=== PATIENT | female | born 1970 | race Caucasian/White ===

== ENCOUNTER → 2018-08-11 14:58 | Outpatient (BNVA) | payer OTHER, SELFPAY | PROVIDERS: PCP Nurse Practitioner; Referring Provider Family Medicine; Visit Provider Physical Therapy Assistant | DX: Z12.11 Encounter for screening for malignant neoplasm of colon (principal); Z83.71 Family history of colonic polyps ==

== ENCOUNTER 2018-08-26 07:19 | Day surgery (SDC) | payer OTHER, SELFPAY ==
[2018-08-26 07:30] VITALS: BP 107/71; PULSE 82; RESP 19; TEMP 36.2; O2SAT 97
[2018-08-26] MEDS: Lactated Ringers 1,000 ML 80 ML IV ×2 (07:51→10:30)
--- NOTE | 2018-08-26 09:20 | BOWEL_PTH ---
PATIENT: Geo Bajwa LOC: [facility] U#:[id number] AGE/SX: 48/F ROOM: RE08/26/[address]: Sydnie Eisenberg : 1970 BED: DIS: 08/26/2018 SPEC #: [id number] RECD: 08/26/18 13:10 STATUS: JOSEFINA RE #: [id number] MARC: 08/26/18 09:[address]: Sydnie Eisenberg DEPT: Surgical Specimen RECD BY: Jackie James ENTERED: 08/26/18 13:11 SP TYPE: Bowel OTHR DR: Mary Rosales Tissues: 1 - BIOPSY BOWEL 2 - BIOPSY BOWEL 3 - BIOPSY BOWEL 4 - BIOPSY BOWEL 5 - BIOPSY BOWEL 6 - BIOPSY BOWEL 7 - BIOPSY BOWEL Procedures: GROSS AND MICRO LEVEL 4 Comments: [id number]
[2018-08-26 11:00] VITALS: BP 102/49; PULSE 63; RESP 17; TEMP 36.6; O2SAT 98
[2018-08-26 11:05] VITALS: BP 110/59; PULSE 59; RESP 17; TEMP 36.6; O2SAT 97
[2018-08-26 11:10] VITALS: BP 96/52; PULSE 60; RESP 10; TEMP 36.6; O2SAT 98
--- NOTE | 2018-08-26 11:23 | W.PM.DSUDISC ---
Discharge Plan Disposition Patient Disposition: HOME Condition: Good Discharge Details Reason For Visit: CE- mult lg polyps removed Attending Provider: Sydnie Eisenberg Primary Care Provider: Mary Rosales Home Meds and New Rx's Prescriptions: New metronidazole [Flagyl] 500 mg tablet 500 mg PO TID 7 Days Qty: 21 RF: 0 ciprofloxacin HCl 500 mg tablet 500 mg PO BID Qty: 14 RF: 0 Continued atorvastatin 20 mg tablet 20 mg PO DAILY RF: 0 cyclobenzaprine 5 mg tablet 5 mg PO QHS PRNRF: 0 escitalopram oxalate [Lexapro] 20 mg tablet 30 mg PO QHS RF: 0 lamotrigine [Lamictal] 25 mg tablet 50 mg PO QPM RF: 0 trazodone 50 mg tablet 50 mg PO PRN RF: 0 Discontinued polyethylene glycol 3350 17 gram/dose powder 238 g PO ONCE Qty: 238 RF: 0 bisacodyl [Dulcolax (bisacodyl)] 5 mg tablet,delayed release (DR/EC) 5 mg PO ONCE Qty: 4 RF: 0 Discharge Instructions Instructions: Low Fiber Diet (GEN), High Fiber Diet (GEN) Additional Instructions: Findings: x12 lg polyps NO: ASA/NSAID's for 2 wks Abx: cipro/flagyl for 1 wks time. This is to avoid Post Polypectomy infection. Do not expect to have a BM for 2-3 days. You will most likely past some blood w/ first few BM. If you are passing lg amount of blood (more than a period) or clots bigger than your hand- go to the ED. soft/low fiber diet for 72 hrs. than slowly transition to high fiber diet. F/u Zapata in two wks time Follow up: repeat scope in 1 yrs time b/c of the size and number of polyps Please call if you develop: fevers >101.5 Nausea or Vomiting Abdominal pain that is not transient DAY SURGERY UNIT POST COLONOSCOPY INSTRUCTIONS 1. Because there will be medication in your system for the next 24 hours, you may feel a little sleepy. Your coordination will be affected. Therefore: a. Do not drive or operate dangerous equipment for 24 hours. b. Do not drink alcohol beverages for 24 hours (not even beer). c. Plan to go home and rest for the day. 2. Generally there are no restrictions on your activity after a day or so has gone by, but you may feel a bit fatigued for a few days. 3 After you arrive home you may have a light meal and return to a normal diet as you can tolerate it without feeling sick to your stomach. 4. After surgery, you may feel pain or discomfort. This should be only transient, but if it persists please contact your doctor. 5. If there are any questions regarding the findings of your procedure, please feel free to contact your doctor. 6. If you are unable to contact your doctor with a problem, contact the hospital at [phone]. 7. Continue all your regular medications unless directed otherwise. I understand the above instructions and have no questions. Signature of Patient or Responsible Adult Escort Date/Time Name of Responsible Adult Escort Signature of Nurse Date/Time Stand Alone Forms: Anastacia Pretty (DARREN) Activity:: no heavy lifting or strenuous activity x 72 hrs Diet:: low fiber diet x 72 hrs Discharge Orders Discharge Orders: Discharge Order (Routine); Ordered 08/26/18 Ordered By: Sydnie Eisenberg DS: Diagnosis Discharge Diagnosis (1) Adenomatous polyps: Status: Acute
[2018-08-26 11:25] VITALS: BP 99/53; PULSE 57; RESP 15; TEMP 36.6; O2SAT 97
--- NOTE | 2018-08-26 11:34 | W.COLOREPORT ---
Date of service: 08/26/18 Time of Service: 11:34 Colonoscopy Report Date of procedure: 08/26/18 Pre-op diagnosis general: CRC screen/extensive 1 degree fam Hx of polyps. Post-op diagnosis procedure note: other (mult lg polyps) Procedure: CE w/ x12 Surgeon: Sydnie Eisenberg Anesthesia proc note operative: GETA Estimated blood loss (mL): 5 Pathology: other Complications: None Disposition: PACU Prep: Miralax Retraction Time: 1 hour Procedure Description: After informed consent was obtained the patient was taken to the procedure room and placed in a left decubitous position. Monitors were applied and a time out was done. The patients name, date of , procedure, allergies to medications and metal in their body was reviewed. The patient was then sedated. Once sedated and comfortable a rectal exam was done. External exam was normal. Internal exam revealed a normal sphincter tone and no palpable masses. The scope was then introduced and retrofelexed. No internal hemorrhoids were identified. The scope was then advanced to the cecum without difficulty. The TI and appendiceal orifice were identified. The prep was good. The scope was then slowly retracted over 60 minutes back into the rectum. There are no diverticula. 12 polyps were removed in total - & via a hot snare; x1 by cold biter; x4 via hot biter. The largest polyp was removed at 80cm. This is on a log stalk. It is at least >1cm. The rest were sessile. 7 of the polps are at least >5mm. the polyps were removed at: 20cm/descending x1. 30cm/descending x2. 50cm/transverse x3. 60cm/transverse x3. 80cm/ascending colonx1 (this was the largest polyp). cecal polyp x1. 70cm/ascending colon x1. The vasculature and mucosa are nl in appearance. Pt had mult large polyps removed. They were all adenomas by NBI. The scope was removed and the patient was woken up and taken back to Same day surgery in stable condition. The patient tolerated the procedure well and there were no immediate complications. Follow up: The patient should follow up in 1 years unless they develop changes in bowel habits or other new gastrointestinal complaints.
[2018-08-26 12:15] VITALS: BP 117/77; PULSE 60; RESP 16; TEMP 35.9; O2SAT 99
== END 2018-08-26 12:33 | disposition home or self-care (01) ==
PROVIDERS: PCP Nurse Practitioner; Visit Provider Surgery
PROC: 0DJD8ZZ Inspection of Lower Intestinal Tract, Via Natural or Artificial Opening Endoscopic (ICD-10-PCS; CPT 45378; principal; 2018-08-26 08:15)
DX: Z12.11 Encounter for screening for malignant neoplasm of colon (principal); D12.4 Benign neoplasm of descending colon; D12.3 Benign neoplasm of transverse colon; D12.2 Benign neoplasm of ascending colon; D12.0 Benign neoplasm of cecum; K63.5 Polyp of colon
CPT/HCPCS: 45385; 45384; 45380; 88305

== ENCOUNTER → 2018-09-12 14:46 | Outpatient (BNVA) | payer OTHER, SELFPAY | PROVIDERS: PCP Nurse Practitioner; Referring Provider Nurse Practitioner; Visit Provider Surgery | DX: D36.9 Benign neoplasm, unspecified site (principal); Z83.71 Family history of colonic polyps | CPT/HCPCS: 99211; 99213 ==

== ENCOUNTER 2018-12-21 16:39 | Outpatient (REF) | payer OTHER, SELFPAY ==
[2018-12-21 19:54] LABS: ALT 73 U/L (14-59); AST 32 U/L (15-37); Alkaline Phosphatase 71 U/L (46-116); Anion Gap 11.4 mmol/L (3-11); BUN 14 mg/dL (7-18); Bilirubin, Total 0.3 mg/dL (0.2-1.0); CO2 26.6 mmol/L (21.0-32.0); CREATININE 0.98 mg/dL (0.55-1.02); Calcium 9.5 mg/dL (8.5-10.1); Chloride 106 mmol/L (98-107); Cholesterol 208 mg/dL (50-200); Glucose 102 mg/dL (70-100); HDL Cholesterol 32 mg/dL (40-60); Potassium 4.4 mmol/L (3.5-5.1); Sodium 144 mmol/L (136-145); Total Protein 7.2 g/dL (6.4-8.2); Triglyceride 414 mg/dL (30-150)
[2018-12-21 20:06] LABS: LDL CHOLESTEROL 106 mg/dL (<100)
== END 2018-12-21 16:59 ==
LOC: NCHCN 16:39
PROVIDERS: PCP Nurse Practitioner; Visit Provider Nurse Practitioner
DX: E78.1 Pure hyperglyceridemia (principal)
CPT/HCPCS: 80053; 80061; 83721

== ENCOUNTER 2020-07-26 03:11 | Outpatient (CLI) | payer OTHER, SELFPAY ==
[2020-07-26 14:06] LABS: HCT 44.5 % (36.0-46.0); HGB 14.7 g/dL (11.2-15.7); MCH 30.1 pg (27.0-33.0); MPV 10.1 fL (8.0-11.0); Platelet Count 252 10^3/uL (130-400); RBC 4.89 10^6/uL (3.93-5.22); RDW-SD 40.2 fL; WBC 7.14 10^3/uL (4.4-10.8)
[2020-07-26 14:42] LABS: ALT 67 U/L (14-59); AST 31 U/L (15-37); CREATININE 0.9 mg/dL (0.55-1.02); Glucose 99 mg/dL (74-106)
[2020-07-26 15:00] LABS: Calculated LDL 102 mg/dL (<100); Cholesterol 183 mg/dL (<200); HDL Cholesterol 39 mg/dL (40-60); Triglyceride 214 mg/dL (<150)
[2020-07-26 15:48] LABS: Hemoglobin A1C 5.4 % (<5.7)
[2020-07-26 15:52] LABS: ALT 65 U/L (14-59); AST 31 U/L (15-37); Alkaline Phosphatase 82 U/L (46-116); Anion Gap 10.1 mmol/L (3-11); BUN 17 mg/dL (7-18); Bilirubin, Total 0.4 mg/dL (0.2-1.0); CO2 25.9 mmol/L (21.0-32.0); CREATININE 0.9 mg/dL (0.55-1.02); Calcium 9.1 mg/dL (8.5-10.1); Chloride 104 mmol/L (98-107); Glucose 100 mg/dL (74-106); Potassium 4.3 mmol/L (3.5-5.1); Sodium 140 mmol/L (136-145)
[2020-08-01 16:21] LABS: Testosterone, Free 0.82 ng/dL (0.06-0.95); Testosterone, Total 39 ng/dL (8-60)
== END 2020-07-26 03:12 | disposition home or self-care (01) ==
PROVIDERS: PCP Nurse Practitioner; Visit Provider Obstetrics & Gynecology
DX: E78.1 Pure hyperglyceridemia (principal); R73.9 Hyperglycemia, unspecified; F64.9 Gender identity disorder, unspecified
CPT/HCPCS: 36415; 80053; 80061; 82947; 84402; 84403; 85027; 82565; 83036; 84450; 84460

== ENCOUNTER 2020-08-22 19:12 | Outpatient (REF) | payer OTHER, SELFPAY ==
[2020-08-22 20:46] LABS: ALT 41 U/L (14-59); AST 17 U/L (15-37); Albumin 3.7 g/dL (3.4-5.0); Alkaline Phosphatase 73 U/L (46-116); Bilirubin, Direct 0.1 mg/dL (0.0-0.2); Bilirubin, Total 0.4 mg/dL (0.2-1.0); Total Protein 6.7 g/dL (6.4-8.2)
== END 2020-08-22 19:13 | disposition home or self-care (01) ==
LOC: NCHCN 19:12
PROVIDERS: PCP Nurse Practitioner; Visit Provider Nurse Practitioner
DX: R74.8 Abnormal levels of other serum enzymes (principal)
CPT/HCPCS: 80076

== ENCOUNTER 2020-09-14 17:51 | Emergency (ER) | payer OTHER, SELFPAY ==
[2020-09-14 18:00] VITALS: BP 117/83; PULSE 85; RESP 16; TEMP 36.9; O2SAT 96
--- NOTE | 2020-09-14 18:16 | ED.GENADUL_ITS ---
Discharge Plan Disposition Patient Disposition: HOME Condition: Good Discharge Details Clinical Impression: Laceration of left thumb Primary Care Provider: Mary Rosales ED Provider: Jackie Nelson Home Meds and New Rx's Prescriptions: No Action atorvastatin 20 mg tablet 20 mg PO DAILY RF: 0 cyclobenzaprine 5 mg tablet 5 mg PO QHS PRNRF: 0 escitalopram oxalate [Lexapro] 20 mg tablet 30 mg PO QHS RF: 0 lamotrigine [Lamictal] 25 mg tablet 50 mg PO QPM RF: 0 trazodone 50 mg tablet 50 mg PO PRN RF: 0 testosterone cypionate 200 mg/mL oil 50 mg IM Q7D RF: 0 Discharge Instructions Instructions: Laceration (ED) Additional Instructions: Dressing on for 2 to 3 days Keep dry for 48 hours Return with spreading redness, fever, worsening pain Bleeding, apply pressure and cool compresses We will not typically suture lacerations been longer than 6 to 12 hours, 12 hours to be the maximum time. Discharge Data Discharge Date/Time-TO BE ENTERED AT DEPARTURE: 09/14/20 18:27 Medical Decision Making Neurovascularly intact, bleeding controlled, given 22 hours post injury, recommendation to not suture secondary to risk of infection No evidence of fracture, neurovascularly intact Wound cleansed and dressing applied Return precautions discussed and patient was understanding Medical Records Medical records reviewed: Yes I reviewed the patient's medical records. HPI General Date/Time Provider Initiated Documentation: 09/14/20 18:16 . Limitations to Documentation: no limitations . Information obtained by: patient . HPI Narrative: This 50-year-old female presents with laceration to left thumb yesterday evening around 8 with a knife accidentally. Denies additional injuries. Presents today secondary to persistent bleeding reportedly. Tetanus up-to-date. Denies any additional injuries. Related Data Home Medications Medication Instructions Recorded Confirmed atorvastatin 20 mg tablet 20 mg PO DAILY 07/20/18 09/14/20 cyclobenzaprine 5 mg tablet 5 mg PO QHS PRN 07/20/18 09/14/20 escitalopram oxalate 20 mg tablet 30 mg PO QHS tab 08/11/18 09/14/20 lamotrigine 25 mg tablet 50 mg PO QPM tab 08/11/18 09/14/20 trazodone 50 mg tablet 50 mg PO PRN 08/11/18 09/14/20 testosterone cypionate 50 mg IM Q7D 09/14/20 09/14/20 Allergies Allergy/AdvReac Type Severity Reaction Status Date / Time clove AdvReac Nausea Verified 09/14/20 18:04 General Stated Complaint: Laceration ADDISON: 4 Review of Systems Narrative: Review of systems negative x3 aside from where indicated in HPI [facility] Medical History (Updated 09/14/20 @ 18:18 by RAFAEL Kelley) Adenomatous polyps tubular x 4, tubulovillous x 4, repeat 1 year, Dr Sydnie Eisenberg, [facility]. mg Anxiety Back pain Family history of colon cancer Family history of colonic polyps Hypertriglyceridemia Macromastia Major depression Physical deconditioning Poor dentition PER PT. PVCs (premature ventricular contractions) PT. STATES PCP (VAIBHAV) TOLD HER SHE HAD THIS CONDITION, MD DID NOT RUN EKG ACCORDING TO PT. Ulnar neuropathy of left upper extremity Social History Smoking/Tobacco Use Status: Former Tobacco Use Quit Date: 08/06/13 Smoking risk assessment performed?: Yes Alcohol Intake: current Alcohol Intake frequency: holidays/special occasions only Drug use: Never Substance use type: does not use Do you feel safe at home: Yes Do you feel safe in your relationship?: Yes Exam Extrem Hand/finger images: 1. Laceration noted, no active bleeding, sensation intact distally Course Vital Signs Vital signs: Vital Signs Temperature 36.9 C 09/14/20 18:00 Pulse 85 09/14/20 18:00 Respiratory Rate 16 09/14/20 18:00 Blood Pressure 117/83 09/14/20 18:00 Pulse Oximetry 96 09/14/20 18:00 Temperature 36.9 C 09/14/20 18:00 Temperature Source Oral 09/14/20 18:00 Pulse 85 09/14/20 18:00 Respiratory Rate 16 09/14/20 18:00 Respiratory Effort Non-Labored 09/14/20 18:03 Blood Pressure 117/83 09/14/20 18:00 Blood Pressure Position Sitting 09/14/20 18:00 Pulse Oximetry 96 09/14/20 18:00 Oxygen Delivery Method Room Air 09/14/20 18:00 Oxygen Flow Rate 0 09/14/20 18:00 Pain Level 2 09/14/20 18:09
== END 2020-09-14 18:27 | disposition home or self-care (01) ==
PROVIDERS: Emergency Provider Physician Assistant; PCP Nurse Practitioner
DX: S61.012A Laceration without foreign body of left thumb without damage to nail, initial encounter (principal); W26.0XXA Contact with knife, initial encounter
CPT/HCPCS: 99282

== ENCOUNTER 2020-10-24 03:03 | Outpatient (CLI) | payer OTHER, SELFPAY ==
[2020-10-24 08:56] LABS: HCT 47.6 % (36.0-46.0); HGB 15.4 g/dL (11.2-15.7); MCH 29.1 pg (27.0-33.0); MCHC 32.4 % (32.0-36.0); MPV 10.2 fL (8.0-11.0); Platelet Count 301 10^3/uL (130-400); RBC 5.29 10^6/uL (3.93-5.22); RDW 11.9 % (11.7-14.6); RDW-SD 38.9 fL; WBC 6.96 10^3/uL (4.4-10.8)
[2020-10-24 09:23] LABS: ALT 24 U/L (14-59); AST 13 U/L (15-37); CREATININE 0.9 mg/dL (0.55-1.02); Calculated LDL 74 mg/dL (<100); Cholesterol 139 mg/dL (<200); Glucose 89 mg/dL (74-106); HDL Cholesterol 32 mg/dL (40-60); Triglyceride 166 mg/dL (<150)
[2020-11-02 12:00] LABS: Testosterone, Free 8.08 ng/dL (0.06-0.92); Testosterone, Total 323 ng/dL (8-60)
== END 2020-10-24 03:04 | disposition home or self-care (01) ==
LOC: LBO 03:04
PROVIDERS: PCP Nurse Practitioner; Visit Provider Obstetrics & Gynecology
DX: F64.9 Gender identity disorder, unspecified (principal); R79.89 Other specified abnormal findings of blood chemistry
CPT/HCPCS: 36415; 80061; 82947; 84402; 84403; 85027; 82565; 84450; 84460

== ENCOUNTER 2021-02-12 02:14 | Outpatient (CLI) | payer MEDICARE, SELFPAY ==
[2021-02-12 18:15] LABS: ALT 30 U/L (14-59); AST 13 U/L (15-37); CREATININE 0.9 mg/dL (0.55-1.02)
[2021-02-17 15:33] LABS: Testosterone, Free 9.24 ng/dL (0.06-0.92); Testosterone, Total 298 ng/dL (8-60)
== END 2021-02-12 02:15 | disposition home or self-care (01) ==
LOC: LBO 02:14
PROVIDERS: PCP Nurse Practitioner; Visit Provider Obstetrics & Gynecology
DX: F64.9 Gender identity disorder, unspecified (principal)
CPT/HCPCS: 36415; 80061; 82947; 84402; 84403; 85027; 82565; 84450; 84460

== ENCOUNTER → 2021-03-27 14:23 | Outpatient (BNVA) | payer MEDICARE, SELFPAY | PROVIDERS: PCP Nurse Practitioner; Referring Provider Nurse Practitioner; Visit Provider Physical Therapy Assistant | DX: Z12.11 Encounter for screening for malignant neoplasm of colon (principal); Z86.010 Personal history of colon polyps ==

== ENCOUNTER 2021-04-11 01:15 | Outpatient (CLI) | payer MEDICARE, SELFPAY ==
[2021-04-11 11:41] LABS: Source Nasal/Nares
[2021-04-11 14:08] LABS: COVID-19 PCR Negative (Negative)
== END 2021-04-11 01:16 | disposition home or self-care (01) ==
LOC: LBO 01:15
PROVIDERS: PCP Nurse Practitioner; Visit Provider Surgery
DX: Z20.822 Contact with and (suspected) exposure to COVID-19 (principal); Z01.818 Encounter for other preprocedural examination
CPT/HCPCS: 87635

== ENCOUNTER 2021-04-14 06:39 | Day surgery (SDC) | payer MEDICARE, SELFPAY ==
--- NOTE | 2021-04-14 06:39 | W.COLOREPORT ---
Colonoscopy Report Date of procedure: 04/14/21 Pre-op diagnosis general: Screening colonoscopy, Hx of colon polyps Post-op diagnosis procedure note: other (7 polyps) Procedure: Colonoscopy with polypectomy Surgeon: Ayana Reyes Anesthesia Type: General:No Airway ([place], [place]) Estimated blood loss (mL): 3 Pathology: other (ascending polyp, transverse polyp, descending polyp x4 and sigmoid polyp) Complications: None Disposition: same day Indications: The patient is here for Colonoscopy pre-op. His last screening was in 2019, which was remarkable for tubular adenoma's x 4, tubulovillious adenomas x 4 and a hyperplastic polyp. He has no family history of colon cancer. He has not had any bowel habit changes. -Discussed colonoscopy bowel prep as well as the procedure. Discussed possible complications of the procedure to include bleeding, pain, perforation, missed small lesion/polyp, sore throat, aspiration and adverse reaction to the medications. Questions were answered to patient?s satisfaction. No guarantees were implied or given. Prep: Miralax/Dulcolax Procedure Start Time: 08:24 Procedure End Time: 09:11 Retraction Time: 35 minutes Findings: 7 sessile polyps ranging from 0.5 to .8 cm Procedure Description: After informed consent was obtained the patient was taken to the procedure room and placed in a left decubitous position. Monitors were applied and a time out was done. The patients name, date of , procedure, allergies to medications and metal in their body was reviewed. The patient was then sedated. Once sedated and comfortable a rectal exam was done. External exam was normal. Internal exam revealed a normal sphincter tone and no palpable masses. The scope was then introduced and retro-flexed. No internal hemorrhoids, polyps or masses were identified on retro-flexion. The scope was then advanced to the cecum without difficulty. The ileocecal valve and appendiceal orifice were identified. The prep was good. The scope was then slowly retracted over 35 minutes back into the rectum. Polyps were removed with hot snare in the ascending colon, transverse colon, desccending colon x2 and with cold forceps in the descending colon x2 and sigmoid colon. There was no diverticulosis noted. The scope was removed and the patient was woken up and taken back to Same day surgery in stable condition. The patient tolerated the procedure well and there were no immediate complications. Follow up: The patient should follow up in 3 years unless they develop changes in bowel habits or other new gastrointestinal complaints.
--- NOTE | 2021-04-14 06:40 | PDOC.DSDIS_ITS ---
Discharge Plan Disposition Patient Disposition: HOME Condition: Good Discharge Details Reason For Visit: Colonoscopy Attending Provider: Ayana Reyes Primary Care Provider: Libertad Canchola Home Meds and New Rx's Prescriptions: Continued atorvastatin 20 mg tablet 20 mg PO DAILY RF: 0 cyclobenzaprine 5 mg tablet 5 mg PO QHS PRNRF: 0 B-complex with vitamin C Capsule 1 cap PO DAILY RF: 0 cholecalciferol (vitamin D3) 25 mcg (1,000 unit) capsule 25 mcg PO DAILY RF: 0 coenzyme Q10 [CoQ-10] 30 mg capsule 30 mg PO DAILY RF: 0 Fish Oil 100-160-1,000 mg capsule 1 cap PO DAILY RF: 0 hypmrluw-wwe-qhfov-[id number]-brlf [Ydkrdp-Ayrtd-VEY (with antiox)] 500-500-66.7 mg tablet 1 tab PO DAILY RF: 0 escitalopram oxalate [Lexapro] 20 mg tablet 30 mg PO QHS RF: 0 lamotrigine [Lamictal] 25 mg tablet 50 mg PO QPM RF: 0 trazodone 50 mg tablet 50 mg PO PRN RF: 0 testosterone cypionate 200 mg/mL oil 50 mg IM Q7D RF: 0 Discontinued polyethylene glycol 3350 17 gram/dose powder 238 g PO ONCE Qty: 238 RF: 0 bisacodyl [Dulcolax (bisacodyl)] 5 mg tablet,delayed release (DR/EC) 5 mg PO ONCE Qty: 4 RF: 0 Discharge Instructions Instructions: Colorectal Polyps (DC) Additional Instructions: Findings: 7 polyps Follow up: Most likely 3 years Please call if you develop: fevers >101.5 Nausea or Vomiting Abdominal pain that is not transient Rectal bleeding that is more then a tbsp A hard abdomen and inability to pass gas DAY SURGERY UNIT POST ENDOSCOPY INSTRUCTIONS Instructions for everyone who is given Anesthesia: For your safety, please do the following for the next 24 Hours: a. Do not drive or operate dangerous equipment b. Do not drink alcohol beverages or use any recreational drugs for the first 24 hours or while taking pain medications. The medications in your body may have a reaction that can be dangerous. c. Do not make any important decisions or sign any important papers 1. Generally there are no restrictions on your activity after a day or so has gone by, but you may feel a bit fatigued for a few days. 2. After you arrive home you may have a light meal and return to a normal diet as you can tolerate it without feeling sick to your stomach. 3. After surgery, you may feel pain or discomfort. This should be only transient, but if it persists please contact your doctor. 4. If there are any questions regarding the findings of your procedure, please f eel free to contact your doctor. 6. If you are unable to contact your doctor with a problem, contact the hospital at [phone]. 7. Continue all your regular medications unless directed otherwise. I understand the above instructions and have no questions. Signature of Patient or Responsible Adult Escort Date/Time Name of Responsible Adult Escort Signature of Nurse Date/Time Activity:: Activity as Tolerated Diet:: As Tolerated Discharge Orders Discharge Orders: Discharge Order (Routine); Ordered 04/14/21 Ordered By: Ayana Reyes
[2021-04-14 07:18] VITALS: BP 113/85; PULSE 82; RESP 16; TEMP 36.2; O2SAT 97
[2021-04-14] MEDS: Lactated Ringers 1,000 ML 80 ML IV (07:35)
--- NOTE | 2021-04-14 07:53 | W.ANESPRE ---
General Info Date of Service Date Performed: 04/14/21 Height: 5 ft 4 in Weight: 93.3 kg Body Mass Index (BMI): 35.3 Surgical Procedure: Operation Date: 04/14/21 08:20 Proposed Procedures Side Surgeon p Colonoscopy Ayana Reyes MD Meds Allergies and Home Medications Allergies Allergy/AdvReac Type Severity Reaction Status Date / Time clove AdvReac Nausea Verified 04/14/21 07:36 Home Medication Medication Instructions Recorded atorvastatin 20 mg tablet 20 mg PO DAILY 07/20/18 cyclobenzaprine 5 mg tablet 5 mg PO QHS PRN 07/20/18 escitalopram oxalate 20 mg tablet 30 mg PO QHS tab 08/11/18 lamotrigine 25 mg tablet 50 mg PO QPM tab 08/11/18 trazodone 50 mg tablet 50 mg PO PRN 08/11/18 testosterone cypionate 50 mg IM Q7D 09/14/20 B-complex with vitamin C 1 cap PO DAILY 03/27/21 bisacodyl 5 mg tablet,delayed 5 mg PO ONCE #4 tab 03/27/21 release cholecalciferol (vitamin D3) 25 25 mcg PO DAILY 03/27/21 mcg (1,000 unit) capsule coenzyme Q10 30 mg capsule 30 mg PO DAILY 03/27/21 kxooshugghs-yia-xldlsfmcu-hrb 1 tab PO DAILY 03/27/21 149-hyalur 500 mg-500 mg-66.7 mg tablet omega 9-oos-ags-fish oil 100 1 cap PO DAILY 03/27/21 mg-160 mg-1,000 mg capsule polyethylene glycol 3350 17 238 g PO ONCE #238 g 03/27/21 gram/dose oral powder Current Visit Medications: Current Medications Generic Name Dose Route Start Last Admin Trade Name Freq PRN Reason Stop Dose Admin Hyoscyamine Sulfate 0.125 mg 04/14/21 06:41 Hyoscyamine 0.125 Mg Sl/Oral/Chew SL DIRECTED PRN Ringer's Solution 1,000 mls @ 80 mls/hr 04/14/21 06:00 04/14/21 07:35 IV 05/11/21 23:59 80 mls/hr INFUSION GABRIELA Administration IV Miscellaneous Supplies 1 each 04/14/21 06:00 Iv Access IV 05/11/21 23:59 DIRECTED GABRIELA Ondansetron HCl 4 mg 04/14/21 06:41 Ondansetron 4 Mg/2 Ml Vial IVP Q4H PRN PRN Nausea / Vomiting Sodium Chloride 0 ml 04/14/21 06:00 Normal Saline Flush 10 Ml Syr IV 05/11/21 23:59 PRN PRN Sodium Chloride 0 ml 04/14/21 06:00 Normal Saline 10 Ml Vial IJ 05/11/21 23:59 DIRECTED PRN Sterile Water 0 ml 04/14/21 06:00 Water,Injection,Sterile 10 Ml Vial IJ 05/11/21 23:59 DIRECTED PRN PFSH Active Problems Active Problems: Problem Status Onset Code Family history of colonic polyps Z83.71 Adenomatous polyps D36.9 Tubular adenoma D36.9 Tubulovillous adenoma D36.9 Colon polyp, hyperplastic K63.5 Elevated liver enzymes R74.8 Gender identity disorder F64.9 Screening for colon cancer Z12.11 Medical History Medical History Anxiety Back pain Family history of colon cancer Family history of colonic polyps Hypertriglyceridemia Laceration of left thumb Macromastia Major depression Physical deconditioning Poor dentition PER PT. PVCs (premature ventricular contractions) PT. STATES PCP (VAIBHAV) TOLD HER SHE HAD THIS CONDITION, MD DID NOT RUN EKG ACCORDING TO PT. Ulnar neuropathy of left upper extremity Medical History Comments:: Pt. reports broken teeth, upper. Pt. reports no metal in body Surgical History Surgical History Hx laparoscopic cholecystectomy Hx of colonoscopy with polypectomy Tobacco Smoking/Tobacco Use Status: Former Tobacco Use Alcohol Alcohol Intake: current Alcohol intake frequency: a few times a month Alcohol type: beer and wine Substance Use Substance use: Never Substance use type: does not use Vital Signs and Lab Results Vital Signs Most Recent Vital Signs in EMR: Most Recent Vital Signs Temp Pulse Resp BP Pulse Ox 36.2 C L 82 16 113/85 97 04/14/21 07:18 04/14/21 07:18 04/14/21 07:18 04/14/21 07:18 04/14/21 07:18 Point of Care Results Point of Care Results: POC- Test(urine) Negative 04/14/21 07:45 Lab Results Blood Type / Crossmatch: No Data to Display Complete Blood Count: No Data to Display Complete Metabolic Panel: No Data to Display Liver Function Panel: No Data to Display Coagulation Panel: No Data to Display Cardiac Panel: No Data to Display Arterial Blood Gas: No Data to Display Venous Blood Gas: No Data to Display Pancreas Panel: No Data to Display Thyroid Panel: No Data to Display Infectious Disease: Coronavirus (COVID-19)(PCR) Negative (Negative) 04/11/21 11:06 04/11/21 Coronavirus 2019 Source Nasal/Nares 04/11/21 11:06 04/11/21 Blood Cultures: No Data to Display Toxicology Panel: No Data to Display Panel: No Data to Display Anesthesia Assessment and Plan Anesthesia History Personal History: No History of Anesthesia Complications Family History: No Family History of Anesthesia Complications Exercise Tolerance Exercise Tolerance: Metabolic Equivalents>4 Pertinent Negatives Pertinent Negatives: No Major Cardiovascular Symptoms or Complaints and No Major Pulmonary Symptoms or Complaints Cardiac & Pulmonary Exam Cardiac Exam: Normal S1/S2 Heart Sounds Pulmonary Exam: Clear Bilateral Breath Sounds Implantable Cardiac Device Does patient have a Pacemaker or an ICD?: No Airway Exam Known Difficult Airway: No Mallampati Class: 2 Mouth Opening: Normal (> 3cm) Thyromental Distance: Greater than 3 cm Neck Range of Motion: Full ROM Neck Circumference: Thick Teeth Condition: Generalized Poor Dentition ASA Classification ASA Score: ASA 2 Emergency Case?: No NPO Status NPO Status: NPO Clears >2 hours, Solids >8 hours Status Status: Not Per Patient Anesthesia Plan Resuscitation Status: Full Code Anesthesia Technique: General Anesthesia Airway Planned: Natural Airway Monitors Used: Standard Monitors
[2021-04-14 07:56] VITALS: BMI 35.3
--- NOTE | 2021-04-14 08:35 | BOWEL_PTH ---
PATIENT: Geo Bajwa LOC: [facility] U#:[id number] AGE/SX: 50/F ROOM: RE04/14/[address]: Ayana Reyes MD : 1970 BED: DIS: 04/14/2021 SPEC #: [id number] RECD: 04/14/21 12:41 STATUS: JOSEFINA RE #: [id number] MARC: 04/14/21 08:[address]: Ayana Reyes DEPT: Surgical Specimen RECD BY: Jackie James ENTERED: 04/14/21 12:44 SP TYPE: Bowel OTHR DR: Libertad Canchola Tissues: 1 - BIOPSY BOWEL 2 - BIOPSY BOWEL 3 - BIOPSY BOWEL 4 - BIOPSY BOWEL 5 - BIOPSY BOWEL 6 - BIOPSY BOWEL Procedures: GROSS AND MICRO LEVEL 4 Comments: [id number]
[2021-04-14 09:27] VITALS: BP 99/58; PULSE 73; RESP 16; TEMP 35.8; O2SAT 96
--- NOTE | 2021-04-14 09:28 | W.ANESPOSTOP ---
Postoperative Evaluation Date, Time and Location Date Performed: 04/14/21 Time Performed: 09:27 Patient Location: Day Surgery Unit Vital Signs Most Recent Imported Vital Signs: Most Recent Vital Signs Temp Pulse Resp BP Pulse Ox 36.2 C L 82 16 113/85 97 04/14/21 07:18 04/14/21 07:18 04/14/21 07:18 04/14/21 07:18 04/14/21 07:18 Most Recent Manually Entered Vital Signs: Adult Blood Pressure: 99/58 Heart Rate: 73 Respirations: 16 Oxygen Saturation (%): 96 Temperature (C): 35.8 C Pain Score (0-10 Scale): 0 Pain Score Most Recent Pain Score: Most Recent Pain Score Pain Level 0 04/14/21 07:18 Assessment Mental Status: Awake (Alert & Oriented to Patient Baseline) Airway and Respiratory Function: Patent airway with normal (patient baseline) respiratory exam Cardiovascular Function: Hemodynamically Stable Hydration Status: Adequately Hydrated Nausea & Vomiting: No Nausea or Vomiting Pain: Pt. Denies Any Pain Peripheral Nerve Block: Patient did not receive a nerve block
[2021-04-14 09:45] VITALS: BP 99/58; PULSE 73; RESP 16; TEMPC 35.8; O2SAT 96
[2021-04-14 09:55] VITALS: BP 111/58; PULSE 73; RESP 16; TEMP 36.5; O2SAT 97
[2021-04-14 10:10] VITALS: BP 115/78
== END 2021-04-14 10:30 | disposition home or self-care (01) ==
PROVIDERS: PCP Family Medicine; Visit Provider Surgery
PROC: 0DJD8ZZ Inspection of Lower Intestinal Tract, Via Natural or Artificial Opening Endoscopic (ICD-10-PCS; CPT 45378; principal; 2021-04-14 08:15)
DX: Z12.11 Encounter for screening for malignant neoplasm of colon (principal); D12.2 Benign neoplasm of ascending colon; D12.3 Benign neoplasm of transverse colon; D12.4 Benign neoplasm of descending colon; Z86.010 Personal history of colon polyps
CPT/HCPCS: 45380; 45385; 81025; 88305; J2001; J2704

== ENCOUNTER 2021-04-30 01:47 | Outpatient (CLI) | payer MEDICARE, SELFPAY ==
[2021-04-30 18:47] LABS: ALT 34 U/L (14-59); AST 16 U/L (15-37); CREATININE 0.9 mg/dL (0.55-1.02); Glucose 86 mg/dL (74-106)
[2021-05-02 10:55] LABS: HIV-1/2 Ag & Ab Screen Negative (Negative)
[2021-05-02 11:03] LABS: Hepatitis C Ab w Rflx HCV PCR Negative (Negative)
[2021-05-02 15:21] LABS: Chlamydia Result Negative (Negative); GC Result Negative (Negative)
[2021-05-02 19:57] LABS: Syphilis IgG w/Reflex Nonreactive (Nonreactive)
[2021-05-07 11:41] LABS: Source Urine
[2021-05-07 11:42] LABS: T.vaginalis, Misc, RNA Negative (Negative)
[2021-05-09 16:50] LABS: Testosterone, Free 23.6 ng/dL (0.06-0.92); Testosterone, Total 873 ng/dL (8-60)
== END 2021-04-30 01:48 | disposition home or self-care (01) ==
LOC: LBO 01:47
PROVIDERS: PCP Family Medicine; Visit Provider Obstetrics & Gynecology
DX: F64.9 Gender identity disorder, unspecified (principal); Z13.0 Encounter for screening for diseases of the blood and blood-forming organs and certain disorders involving the immune mechanism; Z11.3 Encounter for screening for infections with a predominantly sexual mode of transmission; Z11.4 Encounter for screening for human immunodeficiency virus [HIV]; Z11.8 Encounter for screening for other infectious and parasitic diseases; Z72.51 High risk heterosexual behavior
CPT/HCPCS: 36415; 80061; 82947; 84402; 84403; 85027; 86803; 87389; 87491; 87591; 87661; 82565; 84450; 84460; 86780

== ENCOUNTER 2021-10-30 03:25 | Outpatient (CLI) | payer MEDICARE, SELFPAY ==
[2021-10-30 15:15] LABS: Abs Immature Grans 0.02 10^3/uL (0.0-0.06); Absolute Basophil Count 0.03 10^3/uL (0.0-0.2); Absolute Eosinophil Count 0.28 10^3/uL (0.0-0.7); Absolute Lymphocyte Count 2.18 10^3/uL (1.2-3.4); Absolute Monocyte Count 0.63 10^3/uL (0.1-0.8); Basophils % 0.4; Eosinophils % 3.8; HCT 53.7 % (36.0-46.0); Immature Grans % 0.3; Lymphocytes % 29.7; MCH 29.5 pg (27.0-33.0); MCHC 33.5 % (32.0-36.0); MCV 88 fL (80-95); MPV 9.9 fL (8.0-11.0); Monocytes % 8.6; Neutrophils % 57.2; Platelet Count 237 10^3/uL (130-400); RBC 6.11 10^6/uL (3.93-5.22); RDW 12.8 % (11.7-14.6); WBC 7.34 10^3/uL (4.4-10.8)
[2021-10-30 16:10] LABS: ALT 33 U/L (14-59); AST 17 U/L (15-37); Albumin 3.6 g/dL (3.4-5.0); Alkaline Phosphatase 55 U/L (46-116); Anion Gap 8.4 mmol/L (3-11); BUN 10 mg/dL (7-18); Bilirubin, Total 0.7 mg/dL (0.2-1.0); CO2 29.6 mmol/L (21.0-32.0); Calcium 8.7 mg/dL (8.5-10.1); Calculated LDL 72 mg/dL (<100); Chloride 105 mmol/L (98-107); Cholesterol 149 mg/dL (<200); Estimated GFR 58.45 (mL/min/1.73m2); Glucose 98 mg/dL (74-106); HDL Cholesterol 29 mg/dL (40-60); Potassium 4.4 mmol/L (3.5-5.1); Sodium 143 mmol/L (136-145); TSH 0.96 uIU/mL (0.36-3.74); Total Protein 7.3 g/dL (6.4-8.2); Triglyceride 241 mg/dL (<150)
[2021-10-30 16:35] LABS: Diff Comment RBC Morph Reviewed; RBC Morphology Normal
[2021-11-14 14:13] LABS: Testosterone, Free 52.1 ng/dL (<0.13-0.92); Testosterone, Total 1040 ng/dL (8-60)
== END 2021-10-30 03:26 | disposition home or self-care (01) ==
LOC: LBO 03:25
PROVIDERS: PCP Family Medicine; Visit Provider Obstetrics & Gynecology
DX: R74.8 Abnormal levels of other serum enzymes (principal); F32.9 Major depressive disorder, single episode, unspecified; E78.1 Pure hyperglyceridemia; F41.9 Anxiety disorder, unspecified
CPT/HCPCS: 36415; 80053; 80061; 84402; 84403; 84443; 85025

== ENCOUNTER 2022-06-04 02:27 | Outpatient (CLI) | payer MEDICARE, SELFPAY ==
[2022-06-10 16:35] LABS: Testosterone, Free 20.5 ng/dL (<0.13-0.92); Testosterone, Total 631 ng/dL (8-60)
== END 2022-06-04 02:28 | disposition home or self-care (01) ==
PROVIDERS: PCP Family Medicine; Visit Provider Obstetrics & Gynecology
DX: F64.8 Other gender identity disorders (principal)
CPT/HCPCS: 36415; 84402; 84403; 85027

== ENCOUNTER 2022-09-22 02:50 | Outpatient (CLI) | payer MEDICARE, SELFPAY ==
[2022-09-22 12:47] LABS: ALT 36 U/L (14-59); AST 25 U/L (15-37); CREATININE 1.1 mg/dL (0.55-1.02); Estimated GFR 60.46 (mL/min/1.73m2)
[2022-09-22 12:58] LABS: HCT 53.3 % (36.0-46.0); HGB 18.2 g/dL (11.2-15.7); MCH 30.2 pg (27.0-33.0); MCHC 34.1 % (32.0-36.0); MCV 89 fL (80-95); MPV 9.8 fL (8.0-11.0); Platelet Count 218 10^3/uL (130-400); RBC 6.02 10^6/uL (3.93-5.22); RDW 12.3 % (11.7-14.6); RDW-SD 40.4 fL; WBC 7.04 10^3/uL (4.4-10.8)
[2022-09-22 13:10] LABS: Albumin 3.8 g/dL (3.4-5.0); Alkaline Phosphatase 67 U/L (46-116); Anion Gap 5.7 mmol/L (3-11); BUN 12 mg/dL (7-18); Bilirubin, Total 0.7 mg/dL (0.2-1.0); CO2 31.3 mmol/L (21.0-32.0); CREATININE 1.1 mg/dL (0.55-1.02); Calcium 8.7 mg/dL (8.5-10.1); Calculated LDL 132 mg/dL (<100); Chloride 102 mmol/L (98-107); Cholesterol 234 mg/dL (<200); Estimated GFR 60.46 (mL/min/1.73m2); Glucose 98 mg/dL (74-106); HDL Cholesterol 32 mg/dL (40-60); Potassium 4.2 mmol/L (3.5-5.1); Sodium 139 mmol/L (136-145); Total Protein 7.3 g/dL (6.4-8.2); Triglyceride 350 mg/dL (<150)
[2022-09-22 13:13] LABS: ALT 36 U/L (14-59); AST 25 U/L (15-37)
== END 2022-09-22 02:51 | disposition home or self-care (01) ==
PROVIDERS: Nurse Practitioner Family; PCP Family Medicine; Visit Provider Obstetrics & Gynecology
DX: E78.1 Pure hyperglyceridemia (principal); F41.8 Other specified anxiety disorders; F32.89 Other specified depressive episodes; D75.1 Secondary polycythemia; R74.8 Abnormal levels of other serum enzymes; F64.8 Other gender identity disorders; R73.9 Hyperglycemia, unspecified
CPT/HCPCS: 36415; 80053; 80061; 85027; 82565; 83036; 84450; 84460

== ENCOUNTER 2022-11-02 02:44 | Outpatient (CLI) | payer MEDICARE, SELFPAY ==
[2022-11-02 16:44] LABS: HCT 53.5 % (36.0-46.0); HGB 18.6 g/dL (11.2-15.7); MCH 30.2 pg (27.0-33.0); MCHC 34.8 % (32.0-36.0); MCV 87 fL (80-95); MPV 9.7 fL (8.0-11.0); Platelet Count 257 10^3/uL (130-400); RDW 12.4 % (11.7-14.6); WBC 8.44 10^3/uL (4.4-10.8)
[2022-11-02 16:47] LABS: RBC 6.15 10^6/uL (3.93-5.22)
[2022-11-12 11:39] LABS: Testosterone, Free 31.1 ng/dL (<0.13-0.92); Testosterone, Total 713 ng/dL (8-60)
== END 2022-11-02 02:45 | disposition home or self-care (01) ==
PROVIDERS: PCP Family Medicine; Visit Provider Obstetrics & Gynecology
DX: D75.1 Secondary polycythemia (principal); F64.8 Other gender identity disorders; E28.1 Androgen excess
CPT/HCPCS: 36415; 84402; 84403; 85027

== ENCOUNTER 2023-03-18 03:32 | Outpatient (CLI) | payer MEDICARE, SELFPAY ==
--- OUTSIDE RECORDS SUMMARY | 2023-03-18 03:47 | XMS_ITS | Patient Health Record ---
Author Name Unknown Organization [facility] Address [address], [address] [place] [address] Care Team Providers Care Certified Ophthalmic Technician Name Role Phone [facility] [place] Unavailable Sung MCQUEEN, Domonique Unavailable [phone] ALLERGIES Allergen (clinical drug ingredient) Drug/Non Drug Allergy documented on EMR Reaction Allergy Type Onset Date Status Clove Oil headache, nausea , inability to focus Drug Allergy Active Adhesive itching/swelling Allergy Act darwin Dust Mites nasal congestion/sneezi ng Allergy Active Mold nasal congestion/sneezi ng Allergy Active Pollen Pollen nasal congestion/sneezi ng Allergy Active RESULTS Component Value Reference Range Notes TVUS Reviewed date:11/20/2022 01:24:50 PM Interpretation: Performing Lab: Notes/Report: REASON FOR REFERRAL No Information MEDICATIONS Medication SIG (Take, Route, Frequency, Duration) Notes Start Date End Date Status lamoTRIgine 50 MG 1 tablet Orally Once a day Active Atorvastatin Calcium 20 MG 1 tablet Orally Once a day Active Fish Oil Active CoQ-10 Active Glucosamine-MSM Acti ve Vitamin D3 50 MCG (1999 [place]) 1 tablet Orally Once a day for 30 day(s) Active traZODone HCl 50-100mg PRN Act darwin Vitamin B Complex Ac tive Testosterone Cypionate 200 MG/ML 0.2 mL SQ once per week Active Betamethasone Dipropionate 0.05 % 1 thin application to affected areas of vulva Externally BID x 2 wks, then QD x 2 wks, then 2x/wk x 2 wks, then sparingly prn for 90 days 11/16/2022 Active Escitalopram Oxalate 30 mg Active SOCIAL HISTORY Tobacco Use: Social History Observation Description Date Details (start date - stop date) Former Smoker NA - NA Sex Assigned At : Social History Observation Description Sex Assigned At Unknown Alcohol Question Answer Notes Did you have a drink contain ing alcohol in the past year? Yes How often did you have a dri nk containing alcohol in the past year? Two to four times a month (2 points) Smoking Question Answer Notes Are you a: former smoker PROBLEMS Problem Type ICD Code Onset Dates Problem Status W/U Status Risk SNOMED Code Notes Problem Intramural leiomyoma of uterus (D25.1) Active confirmed Intramural leiomyoma of uterus (75238255) Problem Subserosal leiomyoma of uterus (D25.2) Active confirmed Subserous leiomyoma of uterus (17512276) Problem Other specified urinary incontinence (N39.498) Active confirmed Urinary incontinence (403262532) Problem Vulvar cyst (N90.7) Active confirmed Cyst of vulva (67482949) Problem Other fecal abnormalities (R19.5) Active confirmed Abnormal feces (389330542) Problem Abnormal uterine and vaginal bleeding, unspecified (N93.9) Active confirmed Abnormal uterine bleeding (94844533740503 ) Problem Gender identity disorder, unspecified (F64.9) Active confirmed Gender identity disorder (37663530) VITAL SIGNS Blood pressure diastolic 72 03/11/2023 Height 64 in 03/11/2023 Blood pressure systolic 110 03/11/2023 Weight 188 lbs 03/11/2023 BMI 32.27 kg/m2 03/11/2023 Encounters Encounter Location Date Provider Diagnosis [facility] [address] [place] [address], [address] [place] [address] 03/19/2022 [facility] [address] [place] [address], [address] [place] [address] 05/21/2022 [facility] [address] [place] [address], [address] [place] [address] 05/28/2022 [facility] [address] [place] [address], [address] [place] [address] 06/01/2022 [facility] [address] [place] [address], [address] [place] [address] 06/01/2022 [facility] [address] [place] [address], [address] [place] [address] 06/05/2022 [facility] [address], [address] [place] [address] 06/16/2022 [facility] [address], [address] [place] [address] 06/16/2022 [facility] [address], [address] [place] [address] 06/16/2022 [facility] [address], [address] [place] [place] [phone] 09/17/2022 [facility] Sung Gender identity disorder, unspecified F64.9 ; Other fecal abnormalities R19.5 and Other specified urinary incontinence N39.498 [facility] [address] [facility], [address] 09/17/2022 [facility] [address] [facility], [address] [place] [address] 09/21/2022 [facility] [address], [address] [place] [address] 09/22/2022 [facility] [address] [facility], [address] [place] [address] 09/29/2022 [facility] [address], [address] [place] [address] 10/23/2022 [facility] [address], [address] [place] [address] 10/23/2022 [facility] [address], [address] [place] [place] [phone] 10/25/2022 [facility] [address] [facility], [address] [place] [address] 11/07/2022 [facility] [address], [address] [place] [place] [phone] 11/11/2022 [facility] [address] [facility], [address] [place] [address] 11/12/2022 Domonique Almaraz Abnormal uterine and vaginal bleeding, unspecified N93.9 ; Intramural leiomyoma of uterus D25.1 ; Subserosal leiomyoma of uterus D25.2 ; Vulvar cyst N90.7 ; Gender identity disorder, unspecified F64.9 ; Other fecal abnormalities R19.5 and Other specified urinary incontinence N39.498 [facility] [facility], [address] [place] [address] 12/14/2022 [facility] [address] [facility], [address] [place] [address] 01/03/2023 [facility] [address] [facility], [address] [place] [address] 01/27/2023 [facility] [facility], [address] [place] [address] 02/09/2023 [facility], [address] [place] [address] 02/11/2023 [facility], [address] [place] [address] 02/19/2023 [facility], [address] [place] [address] 02/22/2023 [facility] [address] [facility], [address] [place] [address] 02/22/2023 [facility], [address] [place] [address] 02/22/2023 [facility], [address] [place] [address] 03/05/2023 [facility], [address] [place] [address] 03/11/2023 [facility], [address] [place] [address] 03/18/2023 Domonique Almaraz ASSESSMENTS Encounter Date Diagnosis Assessment Notes Treatment Notes Treatment Clinical Notes 11/12/2022 Intramural leiomyoma of uterus (ICD-10 - D25.1) 09/17/2022 Other fecal abnormalities (ICD-10 - R19.5) Discussed symptoms, ddx and options. Re diarrhea and urine loss with orgasm: continue to increase fiber in diet; consider trial of metamucil. Refer to pelvic PT - he'll want to see someone more local to him and will reseach - will lmk if referral needed. 09/17/2022 Gender identity disorder, unspecified (ICD-10 - F64.9) Discussed symptoms and findings. Continue current T dose - will call if/when refills needed [ ] send order for additional labs needed with each separate dx code to [facility] RTC 1 yr annual T f/u Considering TLH/BSO in the spring - will let us know if/when ready to schedule surgery I spent a cumulative total of 30 minutes in and around this visit, including within 24 hrs after the visit, caring for this patient, i.e. 5 mins reviewing previous medical history, 15 mins evaluating the patient, and 10 mins coordinating care and completing the electronic medical record. 11/12/2022 Abnormal uterine and vaginal bleeding, unspecified (ICD-10 - N93.9) Discussed dx of fibroid uterus and options: do nothing vs watchful waiting vs trial medications vs UAE vs myomectomy vs minimally invasive hysterectomy. Clear and strong preference for hysterectomy. [ ] Plan Nyla TLH/BS < [address] [facility] - wants flakita of note, best to call pt in the afternoon due to not awake in the mornings Declines EMB after discussion. Wants to keep ovaries for likely benefits to cognitive, bone and cardiovascular health. (Notes FH CVD.) Beyond the TVUS, I spent a cumulative total of 40 minutes in and around this visit, including within 24 hrs after the visit, caring for this patient, i.e. 5 mins reviewing previous medical history, 25 mins evaluating the patient, and 10 mins coordinating care and completing the electronic medical record. 11/12/2022 Subserosal leiomyoma of uterus (ICD-10 - D25.2) 09/17/2022 Other specified urinary incontinence (ICD-10 - N39.498) 11/12/2022 Vulvar cyst (ICD-10 - N90.7) Discussed differential diagnosis, options, risks, benefits and alternatives of each. [ ] 6 wks BMZ burst/taper - Nancie Pinzon rx Call/RTC if ineffective - for vulvar bx 11/12/2022 Gender identity disorder, unspecified (ICD-10 - F64.9) 11/12/2022 Other fecal abnormalities (ICD-10 - R19.5) 11/12/2022 Other specified urinary incontinence (ICD-10 - N39.498) PLAN OF TREATMENT Next Appt Details Provider Name:Domonique Almaraz, 04/14/2023 01:30:00 PM, [address] [place], [address], Provider Name:Domonique KongAnayeli Almaraz, 04/29/2023 04:30:00 PM, [address] [facility], [address], [place], [address], Provider Name:Domonique Almaraz, 05/20/2023 02:30:00 PM, [address] [facility], [address], [place], [address], Provider Name:Domonique Almaraz, 09/22/2023 03:00:00 PM, [address] [facility], [address], [place], [address], Insurance Providers Payer Name Payer Address Payer Phone Subscriber Number Group Number Insured Name Patient Relationship to Insured Coverage Start Date Coverage End Date [facility] [address] [address] [place], [place] [id number] [phone] [id number] Geo Bajwa Self - patient is the insured MEDICAL (GENERAL) HISTORY Medical History History ICD Code G0 Gender dysphoria, transgender man Preferred Name/Pronouns: Geo (he/him) Last [place]: 04/2021 > 7 polyps found > f/ u in 3 years ([facility]) Depression/anxiety Migraine headaches/Non-migraine headache s Arthritis eczema elevated triglycerides PVCs Nasal polyps genetic testing: all normal except MUTYH c.1187G>A ([id number]) - associated with colon polyposis; needs colonoscopies q3 yrs abnormal uterine bleeding fibroid uterus Abnormal Pap Smear History: Reports numerous PAPs have needed to be repeated due to abnormal results though states that second paps always come back normal. Last PAP: 07/23/20 NIL, neg HPV Surgical History Surgery Date(Month/Year) Cholecystectomy appx 2014 Urethral surgery Age 12
[2023-03-18 17:05] LABS: ALT 99 U/L (14-59); AST 32 U/L (15-37); Estimated GFR 67.78 (mL/min/1.73m2)
[2023-03-26 14:45] LABS: Testosterone, Free 8.04 ng/dL (<0.13-0.92); Testosterone, Total 262 ng/dL (8-60)
== END 2023-03-18 03:33 | disposition home or self-care (01) ==
LOC: LBO 03:32
PROVIDERS: Obstetrics & Gynecology; PCP Family Medicine; Visit Provider Family Medicine
DX: Z13.0 Encounter for screening for diseases of the blood and blood-forming organs and certain disorders involving the immune mechanism (principal); Z13.220 Encounter for screening for lipoid disorders; Z13.228 Encounter for screening for other metabolic disorders
CPT/HCPCS: 36415; 80061; 84402; 84403; 85027; 82565; 83036; 84450; 84460

== ENCOUNTER 2023-03-18 14:53 | Outpatient (CLI) | payer MEDICARE, SELFPAY ==
--- NOTE | 2023-03-18 14:45 | RT.EKG_ITS ---
APPROVED REPORT Exam: Resting ECG Reason for Exam: PRE-PROCEDURE EXAMINATION Patient Location: O HR:73 bpm ECG Measurements Heart Rate 73 AXIS ND 204 P 58 QRSd 86 QRS 30 QT 350 T 29 QTc 386 Conclusion Sinus rhythm...normal P axis, V-rate 50- 99 Borderline prolonged ND interval...ND >202, V-rate 50- 90 Baseline wander in lead(s) V1 I have reviewed and interpreted ECG and agree with software generated interpretation.
== END 2023-03-18 14:54 | disposition home or self-care (01) ==
PROVIDERS: PCP Family Medicine; Visit Provider Nurse Practitioner Family
DX: Z01.818 Encounter for other preprocedural examination (principal)
CPT/HCPCS: 93005; 93010

== ENCOUNTER → 2023-05-14 00:53 | Outpatient (CLI) | payer MEDICARE, SELFPAY ==
--- NOTE | 2023-05-14 | DI.CTLCSR_ITS ---
Exam(s) CT CHEST LUNG CANCER SCREEN EXAM: CT CHEST LUNG CANCER SCREEN CLINICAL HISTORY: PERS HX NICOTINE DEPENDENCE Z87.891 SCREENING FOR LUNG CANCER TECHNIQUE: Imaging Protocol: Axial computed tomography images with coronal and sagittal reformatted images were created and reviewed COMPARISON: No exams were available for comparison FINDINGS: Tracheobronchial tree: Patent where visualized. Pulmonary parenchyma: No consolidation or dominant measurable mass. No architectural distortion. Lung Nodules: None. Mediastinum and Ronel: No dominant adenopathy or fluid collection. The esophagus is unremarkable. Thyroid gland: Unremarkable. Lymph nodes: Unremarkable. Pleura: No effusion or pneumothorax. Heart: The heart is not dilated. No coronary artery calcifications are seen. No pericardial effusion . Aorta: Thoracic aorta non-dilated. Upper abdomen: Unremarkable. Soft Tissues: Unremarkable. Bones: Within normal limits. IMPRESSION: No pulmonary nodules. Lung RADS Cat 1 - Negative: No nodules and definitely benign nodules Lung-RADS 1.0 CATEGORIES: Category 0 - Prior chest CT exam(s) being located for comparison. Category 1 - Annual screening in 12 months. No nodules or definitely benign nodules. Category 2 - Annual screening in 12 months. Benign appearance. Nodules with low likelihood of becomin g active cancer. Category 3 - 6-month follow-up. Probably benign. Short-term follow-up suggested. Nodules with low lik elihood of becoming active cancer. Category 4A - 3-month follow-up and CT/PET if >8 mm in size. Suspicious finding. Findings which requi re additional testing. Category 4B - Findings which require additional testing and tissue sampling. Suspicious finding. Category 4X - Category 3 or 4 nodules with additional features or imaging findings that increases the suspicion of malignancy. Modifier S- Potentially clinically significant finding. (Non lung cancer) RADIATION DOSE DELIVERED: Total DLP Total DLP DATA REPOSITORY: All CT scans at this facility are submitted to the National Radiology Data Registry (NRDR) Dose Index Registry (DIR) with the [employer] (ACR). RADIATION OPTIMIZATION: All CT scans at this facility use at least one of these dose optimization te chniques: automated exposure control; mA and/or kV adjustment per patient size (includes targeted exa ms where dose is matched to clinical indication); or iterative reconstruction.
== END ==
PROVIDERS: PCP Family Medicine; Visit Provider Nurse Practitioner Family
DX: Z87.891 Personal history of nicotine dependence (principal); Z12.2 Encounter for screening for malignant neoplasm of respiratory organs
CPT/HCPCS: 71271

== ENCOUNTER 2023-06-16 05:41 | Outpatient (CLI) | payer MEDICARE, SELFPAY ==
[2023-06-16 16:19] LABS: Abs Immature Grans 0.02 10^3/uL (0.0-0.06); Absolute Basophil Count 0.04 10^3/uL (0.0-0.2); Absolute Eosinophil Count 0.17 10^3/uL (0.0-0.7); Absolute Lymphocyte Count 2.14 10^3/uL (1.2-3.4); Absolute Monocyte Count 0.56 10^3/uL (0.1-0.8); Absolute Neutrophil Count 4.58 10^3/uL (1.2-6.7); Basophils % 0.5; Eosinophils % 2.3; HCT 51.4 % (36.0-46.0); HGB 17.1 g/dL (11.2-15.7); Immature Grans % 0.3; Lymphocytes % 28.5; MCH 30.3 pg (27.0-33.0); MCHC 33.3 % (32.0-36.0); MCV 91 fL (80-95); MPV 9.7 fL (8.0-11.0); Monocytes % 7.5; Neutrophils % 60.9; Platelet Count 262 10^3/uL (130-400); RBC 5.65 10^6/uL (3.93-5.22); RDW 12.4 % (11.7-14.6); RDW-SD 41.3 fL; WBC 7.51 10^3/uL (4.4-10.8)
[2023-06-16 17:04] LABS: ALT 45 U/L (14-59); AST 20 U/L (15-37); Calculated LDL 96 mg/dL (<100); Cholesterol 172 mg/dL (<200); Estimated GFR 67.78 (mL/min/1.73m2); HDL Cholesterol 37 mg/dL (40-60); Triglyceride 199 mg/dL (<150)
[2023-06-16 18:14] LABS: Hemoglobin A1C 5.3 % (<5.7)
[2023-06-25 16:18] LABS: Testosterone, Free 14.2 ng/dL (<0.13-0.92); Testosterone, Total 416 ng/dL (8-60)
== END 2023-06-16 05:42 | disposition home or self-care (01) ==
LOC: LBO 05:41
PROVIDERS: PCP Nurse Practitioner Family; Visit Provider Obstetrics & Gynecology
DX: E78.1 Pure hyperglyceridemia (principal); R73.9 Hyperglycemia, unspecified; D75.1 Secondary polycythemia
CPT/HCPCS: 36415; 80061; 84402; 84403; 82565; 83036; 84450; 84460; 85025

== ENCOUNTER 2023-07-28 05:01 | Outpatient (CLI) | payer MEDICARE, SELFPAY ==
[2023-07-28 16:13] LABS: HGB 15.7 g/dL (11.2-15.7); MCH 30.3 pg (27.0-33.0); MCHC 34.1 % (32.0-36.0); MCV 89 fL (80-95); MPV 9.5 fL (8.0-11.0); Platelet Count 263 10^3/uL (130-400); RBC 5.19 10^6/uL (3.93-5.22); RDW 12.3 % (11.7-14.6); RDW-SD 39.9 fL; WBC 7.98 10^3/uL (4.4-10.8)
== END 2023-07-28 05:02 | disposition home or self-care (01) ==
PROVIDERS: PCP Nurse Practitioner Family; Visit Provider Obstetrics & Gynecology
DX: D75.1 Secondary polycythemia (principal)
CPT/HCPCS: 36415; 85027

== ENCOUNTER 2023-10-08 02:30 | Outpatient (CLI) | payer MEDICARE, SELFPAY ==
[2023-10-08 16:05] LABS: HCT 48.4 % (36.0-46.0); MCHC 33.1 % (32.0-36.0); MCV 88 fL (80-95); MPV 9.6 fL (8.0-11.0); Platelet Count 247 10^3/uL (130-400); RBC 5.52 10^6/uL (3.93-5.22); RDW 12.2 % (11.7-14.6); RDW-SD 39.3 fL; WBC 6.88 10^3/uL (4.4-10.8)
[2023-10-08 16:21] LABS: Hemoglobin A1C 5.4 % (<5.7)
== END 2023-10-08 02:31 | disposition home or self-care (01) ==
PROVIDERS: Visit Provider Obstetrics & Gynecology
DX: R73.9 Hyperglycemia, unspecified (principal); F64.9 Gender identity disorder, unspecified; R74.8 Abnormal levels of other serum enzymes
CPT/HCPCS: 36415; 80061; 85027; 83036

== ENCOUNTER 2023-11-26 13:49 | Outpatient (CLI) | payer MEDICARE, SELFPAY ==
--- NOTE | 2023-11-26 | DI.RAD_ITS ---
Exam(s) XR HAND RT COMPLETE EXAM: XR HAND RT COMPLETE CLINICAL HISTORY: Pain in Rt hand, M79.641, pain in 5th finger. TECHNIQUE: 2D digital imaging was performed. Three views of both hands. COMPARISON: CR XR HAND LT COMPLETE from 11/26/2023 FINDINGS: BONES: No acute fracture is present. No bony destructive lesion is seen. JOINTS: No dislocation present. Minimal degenerative changes of the interphalangeal joints SOFT TISSUE: Normal. IMPRESSION: Minimal degenerative changes of the interphalangeal joints . DATA REPOSITORY: RADIATION DOSE DELIVERED:
--- NOTE | 2023-11-26 | DI.RAD_ITS ---
Exam(s) XR HAND LT COMPLETE EXAM: XR HAND LT COMPLETE CLINICAL HISTORY: Pain in Lt hand, M79.642, lump in lt middle finger, 5th finger pain. TECHNIQUE: 2D digital imaging was performed. Three views. COMPARISON: No exams were available for comparison FINDINGS: BONES: No acute fracture is present. No bony destructive lesion is seen. JOINTS: No dislocation present. SOFT TISSUE: Normal. IMPRESSION: Unremarkable radiographs of the left hand. DATA REPOSITORY: RADIATION DOSE DELIVERED:
== END 2023-11-26 14:09 ==
PROVIDERS: Visit Provider Nurse Practitioner Family
DX: M79.642 Pain in left hand (principal); M79.641 Pain in right hand
CPT/HCPCS: 73130

== ENCOUNTER 2024-03-20 04:27 | Outpatient (CLI) | payer MEDICARE, SELFPAY ==
[2024-03-20 15:49] LABS: Abs Immature Grans 0.02 10^3/uL (0.0-0.06); Absolute Basophil Count 0.04 10^3/uL (0.0-0.2); Absolute Eosinophil Count 0.29 10^3/uL (0.0-0.7); Absolute Lymphocyte Count 2.29 10^3/uL (1.2-3.4); Absolute Monocyte Count 0.58 10^3/uL (0.1-0.8); Absolute Neutrophil Count 3.47 10^3/uL (1.2-6.7); Basophils % 0.6 %; Eosinophils % 4.3 %; HCT 45.5 % (36.0-46.0); HGB 14.1 g/dL (11.2-15.7); Immature Grans % 0.3 %; Lymphocytes % 34.2 %; MCH 25.4 pg (27.0-33.0); MCV 82 fL (80-95); MPV 9.7 fL (8.0-11.0); Monocytes % 8.7 %; Neutrophils % 51.9 %; Platelet Count 306 10^3/uL (130-400); RBC 5.56 10^6/uL (3.93-5.22); RDW 13.8 % (11.7-14.6); RDW-SD 41.2 fL; WBC 6.69 10^3/uL (4.4-10.8)
[2024-03-20 16:02] LABS: Hemoglobin A1C 5.7 % (<5.7)
[2024-03-20 16:23] LABS: ALT 29 U/L (14-59); AST 16 U/L (15-37); Calculated LDL 98 mg/dL (<100); Cholesterol 186 mg/dL (<200); Estimated GFR 67.36 (mL/min/1.73m2); HDL Cholesterol 39 mg/dL (40-60); Triglyceride 246 mg/dL (<150)
[2024-03-30 10:32] LABS: Testosterone, Free 15.1 ng/dL (<0.13-0.92); Testosterone, Total 449 ng/dL (8-60)
== END 2024-03-20 04:28 | disposition home or self-care (01) ==
PROVIDERS: Visit Provider Obstetrics & Gynecology
DX: E78.1 Pure hyperglyceridemia (principal); R73.9 Hyperglycemia, unspecified; D75.1 Secondary polycythemia; R74.8 Abnormal levels of other serum enzymes; F64.9 Gender identity disorder, unspecified; F32.5 Major depressive disorder, single episode, in full remission
CPT/HCPCS: 36415; 80061; 84402; 84403; 82565; 83036; 84450; 84460; 85025

== ENCOUNTER 2024-09-04 01:14 | Outpatient (CLI) | payer MEDICARE, SELFPAY ==
--- NOTE | 2024-09-04 15:35 | DI.CTLCSR_ITS ---
Exam(s) CT CHEST LUNG CANCER SCREEN EXAM: CT CHEST LUNG CANCER SCREEN CLINICAL HISTORY: Personal h/o nicotine dependence, Z87.891, ex-smoker TECHNIQUE: Imaging Protocol: Axial computed tomography images with coronal and sagittal reformatted images were created and reviewed. Low dose screening protocol. COMPARISON: CT CT CHEST LUNG CANCER SCREEN from 05/14/2023 FINDINGS: Tracheobronchial tree: No bronchiectasis or mucus plugging. Mediastinum and Ronel: No dominant adenopathy or fluid collection. Pulmonary parenchyma: No consolidation or dominant measurable mass. No visible emphysematous changes. No significant interstitial changes. Lung Nodules: None. Pleura: No effusion. No pneumothorax. Heart: The heart is not dilated. No coronary artery calcifications are seen. No pericardial effusion. Aorta: Thoracic aorta non-dilated. Upper abdomen: Unremarkable. Bones: Unremarkable for age. Soft Tissues: Unremarkable. IMPRESSION: No suspicious pulmonary nodules. Lung RADS Cat 1 - Negative: No nodules and definitely benign nodules Lung-RADS 1.0 CATEGORIES: Category 0 - Prior chest CT exam(s) being located for comparison. Category 1 - Annual screening in 12 months. No nodules or definitely benign nodules. Category 2 - Annual screening in 12 months. Benign appearance. Nodules with low likelihood of becoming active cancer. Category 3 - 6-month follow-up. Probably benign. Short-term follow-up suggested. Nodules with low likelihood of becoming active cancer. Category 4A - 3-month follow-up and CT/PET if >8 mm in size. Suspicious finding. Findings which require additional testing. Category 4B - Findings which require additional testing and tissue sampling. Category 4X - Category 3 or 4 nodules with additional features or imaging findings that increases the suspicion of malignancy. Modifier S- Potentially clinically significant findings (non lung cancer) RADIATION DOSE DELIVERED: !Error Total DLP DATA REPOSITORY: All CT scans at this facility are submitted to the National Radiology Data Registry (NRDR) Dose Index Registry (DIR) with the [employer] (ACR). RADIATION OPTIMIZATION: All CT scans at this facility use at least one of these dose optimization techniques: automated exposure control; mA and/or kV adjustment per patient size (includes targeted exams where dose is matched to clinical indication); or iterative reconstruction.
== END 2024-09-04 01:34 ==
PROVIDERS: PCP Family Medicine; Visit Provider Family Medicine
DX: Z12.2 Encounter for screening for malignant neoplasm of respiratory organs (principal); Z87.891 Personal history of nicotine dependence
CPT/HCPCS: 71271

== ENCOUNTER → 2025-02-07 13:43 | Outpatient (BNVA) | payer MEDICARE, SELFPAY | PROVIDERS: PCP Family Medicine; Referring Provider Family Medicine; Visit Provider Physical Therapy Assistant | DX: Z12.11 Encounter for screening for malignant neoplasm of colon (principal); Z86.0101 Personal history of adenomatous and serrated colon polyps; Z86.0102 Personal history of hyperplastic colon polyps | CPT/HCPCS: S0285 ==

== ENCOUNTER 2025-02-21 09:03 | Day surgery (SDC) | payer MEDICARE, SELFPAY ==
[2025-02-21 09:38] VITALS: BP 124/86; PULSE 80; RESP 16; TEMP 36.6; O2SAT 16
--- NOTE | 2025-02-21 10:16 | W.ANESPRE ---
General Info Date of Service Date Performed: 02/21/25 Height: 5 ft 4 in Weight: 85.3 kg Body Mass Index (BMI): 32.3 Surgical Procedure: Operation Date: 02/21/25 10:35 Proposed Procedure Side Surgeon katherine Vital MD Meds Allergies and Home Medications Allergies Allergy/AdvReac Type Severity Reaction Status Date / Time clove AdvReac Nausea Verified 02/21/25 09:35 Home Medication ?Medication ?Instructions ?Recorded atorvastatin 20 mg tablet 20 mg PO DAILY 07/20/18 cyclobenzaprine 5 mg tablet 5 mg PO QHS PRN 07/20/18 escitalopram oxalate 20 mg tablet 30 mg PO QHS 08/11/18 (Lexapro) lamotrigine 25 mg tablet (Lamictal) 50 mg PO QPM 08/11/18 trazodone 50 mg tablet 50 mg PO PRN 08/11/18 testosterone cypionate 200 mg/mL 50 mg IM Q7D 09/14/20 intramuscular oil B-complex with vitamin C 1 cap PO DAILY 03/27/21 cholecalciferol (vitamin D3) 25 25 mcg PO DAILY 03/27/21 mcg (1,000 unit) capsule coenzyme Q10 30 mg capsule (CoQ-10) 30 mg PO DAILY 03/27/21 uewnrfkixxg-fla-bnkvtsquj-hrb 1 tab PO DAILY 03/27/21 149-hyalur 500 mg-500 mg-66.7 mg tablet (Vkacxixtwqa-Nwvqvktuknw-ZBY (with antiox)) omega 6-vzu-geb-fish oil 100 1 cap PO DAILY 03/27/21 mg-160 mg-1,000 mg capsule (Fish Oil) bisacodyl 5 mg tablet,delayed 5 mg PO ONCE #4 tabs 02/07/25 release (Dulcolax (bisacodyl)) polyethylene glycol 3350 17 17 g PO ONCE #238 grams 02/07/25 gram/dose oral powder Current Visit Medications: Current Medications Generic Name Dose Route Start Last Admin Trade Name Freq PRN Reason Stop Dose Admin Ringer's Solution 1,000 mls @ 80 mls/hr 02/21/25 06:00 IV 02/21/25 23:59 INFUSION GABRIELA Sodium Chloride 0 ml 02/21/25 06:00 Normal Saline Flush 10 Ml Syr IV 02/21/25 23:59 PRN PRN Sodium Chloride 0 ml 02/21/25 06:00 Normal Saline 10 Ml Vial IJ 02/21/25 23:59 DIRECTED PRN Sterile Water 0 ml 02/21/25 06:00 Water,Injection,Sterile 10 Ml Vial IJ 02/21/25 23:59 DIRECTED PRN PFSH Active Problems Active Problems: Problem Status Onset Code Genetic carrier Acute Z14.8 Gender identity disorder Acute F64.9 Colon polyp, hyperplastic Acute K63.5 Tubulovillous adenoma Acute D36.9 Tubular adenoma Acute D36.9 Adenomatous polyps Acute D36.9 Family history of colonic polyps Acute Z83.71 Medical History Medical History Screening for colon cancer Laceration of left thumb Elevated liver enzymes Poor dentition PER PT. PVCs (premature ventricular contractions) PT. STATES PCP (VAIBHAV) TOLD HER SHE HAD THIS CONDITION, MD DID NOT RUN EKG ACCORDING TO PT. Family history of colon cancer Back pain Hypertriglyceridemia Anxiety Major depression Ulnar neuropathy of left upper extremity Physical deconditioning Macromastia Family history of colonic polyps Medical History Comments:: Pt. reports broken teeth, upper. Pt. reports no metal in body Surgical History Surgical History History of gender confirmation surgery (~07/16/21) top surgery History of laparoscopic-assisted vaginal hysterectomy (~04/14/23) History of colonoscopy (~04/2021) 2019 Hx laparoscopic cholecystectomy Hx of colonoscopy with polypectomy Tobacco Smoking/Tobacco Use Status: Former Tobacco Use Alcohol Alcohol Intake: current Alcohol intake frequency: a few times a month Alcohol type: beer and wine Substance Use Substance use: Never Substance use type: does not use Vital Signs and Lab Results Vital Signs Most Recent Vital Signs in EMR: Most Recent Vital Signs Temp Pulse Resp BP Pulse Ox 36.6 C 80 16 124/86 16 L 02/21/25 09:38 02/21/25 09:38 02/21/25 09:38 02/21/25 09:38 02/21/25 09:38 Imaging and Studies Imaging and Studies Study information below may be from another EMR and interpreted by another provider. Please see original notes in EMR for more complete details. EKG Summary: Reviewed Anesthesia Assessment and Plan Anesthesia History Personal History: No History of Anesthesia Complications Family History: No Family History of Anesthesia Complications Exercise Tolerance Exercise Tolerance: Metabolic Equivalents>4 Pertinent Negatives Pertinent Negatives: No Major Cardiovascular Symptoms or Complaints and No Major Pulmonary Symptoms or Complaints Cardiac & Pulmonary Exam Cardiac Exam: Normal S1/S2 Heart Sounds Pulmonary Exam: Clear Bilateral Breath Sounds Implantable Cardiac Device Does patient have a Pacemaker or an ICD?: No Airway Exam Known Difficult Airway: No Mallampati Class: 2 Mouth Opening: Normal (> 3cm) Thyromental Distance: Greater than 3 cm Neck Range of Motion: Full ROM Neck Circumference: Thick Teeth Condition: Generalized Poor Dentition and Loose or Chipped ASA Classification ASA Score: ASA 2 Emergency Case?: No NPO Status NPO Status: NPO Clears >2 hours, Solids >8 hours Status Status: History of Hysterectomy Anesthesia Plan Resuscitation Status: Full Code Anesthesia Technique: General Anesthesia Airway Planned: Natural Airway Monitors Used: Standard Monitors
--- NOTE | 2025-02-21 12:00 | BOWEL_PTH ---
PATIENT: Geo Bajwa LOC: [facility] U#:[id number] AGE/SX: 54/F ROOM: RE02/21/[address]: Angela Vital : 1970 BED: DIS: 02/21/2025 SPEC #: [id number] RECD: 02/21/25 12:33 STATUS: JOSEFINA REQ #: [id number] MARC: 02/21/25 12:[address]: Angela Vital DEPT: Surgical Specimen RECD BY: Jackie James ENTERED: 02/21/25 12:34 SP TYPE: Bowel OTHR DR: Libertad Canchola Tissues: 1 - BIOPSY BOWEL 2 - BIOPSY BOWEL Procedures: GROSS AND MICRO LEVEL 4 Comments: [id number]
[2025-02-21 12:05] VITALS: BMI 32.3
--- NOTE | 2025-02-21 12:11 | W.PM.DSUDISC ---
Date of service: 02/21/25 Discharge Plan Disposition Patient Disposition: Home Condition: Good Discharge Details Reason For Visit: History of colon polyps Attending Provider: Angela Vital Primary Care Provider: Libertad Canchola Recommendations for Follow Up Recommended tests to be ordered by follow up provider: Follow up pathology Home Meds and New Rx's Prescriptions: Continued atorvastatin 20 mg tablet 20 mg PO DAILY cyclobenzaprine 5 mg tablet 5 mg PO QHS PRN B-complex with vitamin C Capsule 1 cap PO DAILY cholecalciferol (vitamin D3) 25 mcg (1,000 unit) capsule 25 mcg PO DAILY coenzyme Q10 [CoQ-10] 30 mg capsule 30 mg PO DAILY Fish Oil 100-160-1,000 mg capsule 1 cap PO DAILY [id number] [Kshlqa-Wrlby-APJ (with antiox)] 500-500-66.7 mg tablet 1 tab PO DAILY Patient Comments: no chondroit escitalopram oxalate [Lexapro] 20 mg tablet 30 mg PO QHS lamotrigine [Lamictal] 25 mg tablet 50 mg PO QPM trazodone 50 mg tablet 50 mg PO PRN testosterone cypionate 200 mg/mL oil 50 mg IM Q7D Patient Comments: INJECT 0.1 MILLILITER UNDER THE SKIN ONCE WEEKLY Discontinued bisacodyl [Dulcolax (bisacodyl)] 5 mg tablet,delayed release (DR/EC) 5 mg PO ONCE Qty: 4 0RF Rx Instructions: Take per colonoscopy instructions provided by ordering providers office polyethylene glycol 3350 17 gram/dose powder 17 g PO ONCE Qty: 238 0RF Rx Instructions: Take per colonoscopy instructions provided by ordering providers office Discharge Instructions Additional Instructions: Your colonoscopy went well today. You did have evidence of 2 small polyps which were removed and will be sent to pathology. When these results returned we will contact you and make recommendations for when to follow-up with a repeat colonoscopy. If you have any questions or concerns please contact the surgery office. 1. If tolerated, consume a soft, low fiber diet for 1-2 days. 2[address] Do not drive, drink alcohol, operate machinery, make critical decisions, or do activities that require coordination or balance for 24 hours. 3. Because air was put into your colon during the procedure, expelling air from your rectum (passing gas or farting) is normal. 4. You may not have a bowel movement for 1-3 days because of the colonoscopy prep. This is normal. 5. Go directly to the emergency room if you notice any of the following: Develop chills (warm to touch), or if you have a thermometer and your temperature is above 101 Difficulty breathing or difficultly swallowing Persistent vomiting Severe abdominal pain, other than gas cramps Severe chest pain Black, tarry stools Any bleeding ? exceeding one tablespoon 6. Call your physician if the site where your intravenous was started becomes red, swollen, painful, and warm to touch. 7. Your physician has reviewed your pre-procedure medications. Please continue to take those medications as previously ordered. You will be given specific information/education regarding any changes to your medications before leaving. Stand Alone Forms: Portal Information Activity:: Activity as Tolerated Diet:: As Tolerated Discharge Orders Discharge Orders: Discharge Order (Routine); Ordered 02/21/25 Ordered By: Angela Vital
[2025-02-21 12:12] VITALS: BP 95/72; PULSE 75; RESP 18; TEMP 36.4; O2SAT 96
--- NOTE | 2025-02-21 12:13 | W.COLOREPORT ---
Date of service: 02/21/25 Time of Service: 12:13 Colonoscopy Report Date of procedure: 02/21/25 Pre-op diagnosis general: History of colon polyps Post-op diagnosis procedure note: same Procedure: Colonoscopy with polypectomy Surgeon: Angela Vital Anesthesia Type: General:No Airway Estimated blood loss (mL): 1 Pathology: other (Colon polyp at 75cm, Rectal polyp ) Complications: None Disposition: PACU Indications: Patient is a 54-year-old who presents for surveillance colonoscopy given personal history of polyps. They deny any changes in bowel habits or blood in their stool. Prep: Miralax/Dulcolax Procedure Start Time: 11:47 Procedure End Time: 12:07 Retraction Time: 9 Findings: 6 mm colon polyp at 75 cm removed with cold forceps. Small rectal polyp removed with cold forceps. Procedure Description: The patient was brought to the endoscopy suite and placed in the left lateral decubitus position. After induction of IV sedation, a digital rectal exam was performed. Digital exam was normal. The colonoscope was then passed to the cecum without difficulty. Cecal intubation was confirmed by the identification of the appendiceal orifice and the ileocecal valve. Upon withdrawing the colonoscope, all mucosal surfaces were inspected. The prep was noted to be adequate. At 75cm, there was a 6mm polyp, which was removed using cold forceps in its entirety. A small rectal polyp was also removed using cold forceps. Specimens were retrieved for pathological analysis. There was no other evidence of mucosal abnormality, polyp or cancer. Retroflexion in the rectum was unremarkable. The patient tolerated the procedure well with no complications. Postoperatively, the patient was transferred to the recovery room in stable condition. [place] Bowel Prep [place] Bowel Prep Right Colon: 3 Left Colon: 3 Transverse Colon: 3 Total Score: 9
--- NOTE | 2025-02-21 12:32 | W.ANESPOSTOP ---
Postoperative Evaluation Date, Time and Location Date Performed: 02/21/25 Time Performed: 12:33 Patient Location: Day Surgery Unit Vital Signs Most Recent Imported Vital Signs: Most Recent Vital Signs Temp Pulse Resp BP Pulse Ox 36.4 C L 75 18 95/72 L 96 02/21/25 12:12 02/21/25 12:12 02/21/25 12:12 02/21/25 12:12 02/21/25 12:12 Pain Score Most Recent Pain Score: Most Recent Pain Score Pain Level 0 02/21/25 12:12 Assessment Mental Status: Awake (Alert & Oriented to Patient Baseline) Airway and Respiratory Function: Patent airway with normal (patient baseline) respiratory exam Cardiovascular Function: Hemodynamically Stable Hydration Status: Adequately Hydrated Nausea & Vomiting: No Nausea or Vomiting Pain: Pt. Denies Any Pain Peripheral Nerve Block: Patient did not receive a nerve block
[2025-02-21 12:40] VITALS: BP 102/74; PULSE 65; RESP 18; TEMP 36.7; O2SAT 99
== END 2025-02-21 12:57 | disposition home or self-care (01) ==
PROVIDERS: PCP Family Medicine; Visit Provider Student in an Organized Health Care Education/Training Program
PROC: 0DJD8ZZ Inspection of Lower Intestinal Tract, Via Natural or Artificial Opening Endoscopic (ICD-10-PCS; CPT 45378; principal; 2025-02-21 10:30)
DX: Z12.11 Encounter for screening for malignant neoplasm of colon (principal); D12.4 Benign neoplasm of descending colon; K62.1 Rectal polyp
CPT/HCPCS: 45380; 88305; J2704